=== PATIENT | male | born 1970 | race Caucasian/White ===

== ENCOUNTER 2024-12-13 14:45 | Emergency (ER) | payer MEDICAID ==
[~2024-12-13] VITALS: Ht 177.8 cm; Wt 72.6 kg
[2024-12-13 15:06] VITALS: BP 121/82; TEMP 98.4
[2024-12-13 17:13] LABS: PLATELET COUNT (AUTO) 286 K/uL (150-450); RED BLOOD CELL COUNT(AUTO) 4.58 MIL/uL (4.5-6.0); RED CELL DISTRIBUTION WIDTH 15.7 % (11.5-15.0); WHITE BLOOD COUNT (AUTO) 5.9 K/uL (4.3-11.0)
[2024-12-13 17:20] LABS: CALCIUM, SERUM 9.0 mg/dL (8.5-10.1); CREATININE 0.9 mg/dL (0.6-1.3); SODIUM SERUM 144.0 mmol/L (136-145); UREA NITROGEN, BLOOD 13.0 mg/dL (7-18)
[2024-12-13 17:22] LABS: PHOSPHORUS 3.4 mg/dL (2.5-4.9)
[2024-12-13] MEDS ORDERED: METH4TAB17 PO (17:55)
[2024-12-13] MEDS ORDERED: TDAP [DIPH/PERTUSSIS/TET] 0.5 ML VIAL IM ONE (18:06)
[2024-12-13 18:14] VITALS: O2SAT 98
[2024-12-13] MEDS: TDAP [DIPH/PERTUSSIS/TET] 0.5 ML VIAL IM ONE (18:14)
== END 2024-12-13 18:16 | disposition home or self-care (01) ==
LOC: ER 14:56
DX: R20.2 Paresthesia of skin (principal); R21 Rash and other nonspecific skin eruption; L40.50 Arthropathic psoriasis, unspecified; F32.A Depression, unspecified
CPT/HCPCS: 99283; 90471; 90715; 85025; 80048; 83735; 84100; 36415; J7512

== ENCOUNTER 2025-03-02 19:32 | Emergency (ER) | payer MEDICAID ==
[~2025-03-02] VITALS: Ht 177.8 cm; Wt 68.0 kg
[~2025-03-02 19:32] MED LIST: METH4TAB17 PO
[2025-03-02] MEDS ORDERED: ACETAMINOPHEN 325 MG TABLET ONE (20:50)
[2025-03-02] MEDS: ACETAMINOPHEN 325 MG TABLET PO ONE (20:58)
[2025-03-02 22:01] VITALS: BP 161/110; TEMP 98.4; O2SAT 98
== END 2025-03-02 22:01 | disposition home or self-care (01) ==
LOC: ER 19:36
DX: R51.9 Headache, unspecified (principal); M54.2 Cervicalgia; L40.50 Arthropathic psoriasis, unspecified; Z98.1 Arthrodesis status
CPT/HCPCS: 99284; 72125; 71045; 70450; L0172

== ENCOUNTER 2025-03-04 16:09 | Emergency (ER) | payer MEDICAID ==
[~2025-03-04] VITALS: Ht 177.8 cm; Wt 68.0 kg
[2025-03-04 16:20] VITALS: TEMP 97.9
[2025-03-04] MEDS ORDERED: METHOCARBAMOL (500MG) 500 MG TABLET ONE (16:49)
[2025-03-04] MEDS ORDERED: KETOROLAC TROMETHAMINE 15 MG/ML VIAL ONE (16:49)
[2025-03-04] MEDS ORDERED: ACET-2030 PO (17:13)
[2025-03-04] MEDS ORDERED: IBUP-1490 PO (17:13)
[2025-03-04] MEDS ORDERED: METH-649 PO (17:13)
[2025-03-04] MEDS: METHOCARBAMOL (500MG) 500 MG TABLET PO ONE (17:15)
[2025-03-04] MEDS: KETOROLAC TROMETHAMINE 15 MG/ML VIAL IM ONE (17:16)
[2025-03-04] MEDS ORDERED: AZIT250T13 PO (17:47)
[2025-03-04] MEDS ORDERED: AMOX-430 PO (17:47)
[2025-03-04 17:55] VITALS: BP 144/92
[2025-03-04] MEDS: AZITHROMYCIN 250 MG TABLET PO ONE (18:00)
[2025-03-04] MEDS: AMOX/CLAVULANATE 875 MG TABLET PO ONE (18:00)
[2025-03-04 18:05] VITALS: O2SAT 96
== END 2025-03-04 18:59 | disposition home or self-care (01) ==
LOC: ER 16:12
DX: J18.9 Pneumonia, unspecified organism (principal); Z98.1 Arthrodesis status; Z60.2 Problems related to living alone
CPT/HCPCS: 99285; 71250; 96372; J1885